=== PATIENT | male | born 1990 | race American Indian/Alaskan Native ===

== ENCOUNTER 2018-05-17 12:03 | Emergency (ER) | payer OTHER ==
--- NOTE | 2018-05-17 12:29 | Emergency Department Report ---
ED Lower Extremity HPI - General Chief Complaint: Extremity Injury, Lower Stated Complaint: FOOT/ANKLE PAIN Time Seen by Provider: 05/17/18 12:13 Source: patient, family Mode of arrival: Ambulatory Limitations: No Limitations - History of Present Illness Initial Comments: Patient she reported that a pallet rolled over his foot while at work last night. He is complaining the left foot and ankle pain. Pain is 9 out of 10 and throbbing in, a kid. Worse with movement and weightbearing better with rest. He said he took ibuprofen prior to coming to the emergency room. Denies any numbness or tingling to extremities. Denies any radiation of pain proximally. Denies any abrasions, laceration or bruising. He reports swelling to his anterior foot below his ankle. MD Complaint: ankle injury, foot injury -: Last night Injury: Ankle: Left (injury with pain and swelling), Foot: Left (injury with pain and swelling) Type of Injury: blunt Place: work Severity: severe Severity scale (0 -10): 9 Improves With: NSAID, rest Worsens With: weight bearing, movement, palpation Context: direct blow Associated Symptoms: swelling, able to partially bear weight. denies: snap/pop sensation, numbness, tingling, unable to bear weight Treatments Prior to Arrival: NSAIDS - Related Data Previous Rx's Medication Instructions Recorded Last Taken Type Ibuprofen [Motrin 800 MG tab] 800 mg PO TID PRN #20 tablet 10/19/13 Unknown Rx Acetaminophen/Codeine [Tylenol 1 tab PO Q6H PRN #14 tab 05/17/18 Unknown Rx /Codeine # 3 tab] Ibuprofen [Motrin] 600 mg PO Q8H PRN #21 tablet 05/17/18 Unknown Rx Allergies Allergy/AdvReac Type Severity Reaction Status Date / Time No Known Allergies Allergy Unverified 10/19/13 09:42 ED Review of Systems ROS: Stated complaint: FOOT/ANKLE PAIN Other details as noted in HPI Constitutional: denies: chills, fever Eyes: denies: eye pain, eye discharge, vision change ENT: denies: ear pain, throat pain Respiratory: denies: cough, shortness of breath, SOB with exertion, SOB at rest , wheezing Cardiovascular: denies: chest pain, palpitations, edema, syncope Gastrointestinal: denies: nausea, vomiting Musculoskeletal: joint swelling, arthralgia. denies: back pain, myalgia Skin: denies: rash, lesions Neurological: abnormal gait. denies: headache, weakness, numbness, paresthesias , confusion, vertigo ED Past Medical Hx - Past Medical History Previous Medical History?: No - Surgical History Past Surgical History?: Yes Additional Surgical History: left wrist surgery - Family History Family history: hypertension - Social History Smoking Status: Never Smoker Substance Use Type: Non Opiate Pain - Medications Home Medications: Home Medications Medication Instructions Recorded Confirmed Last Taken Type Ibuprofen [Motrin 800 MG tab] 800 mg PO TID PRN #20 tablet 10/19/13 Unknown Rx Acetaminophen/Codeine [Tylenol 1 tab PO Q6H PRN #14 tab 05/17/18 Unknown Rx /Codeine # 3 tab] Ibuprofen [Motrin] 600 mg PO Q8H PRN #21 tablet 05/17/18 Unknown Rx ED Physical Exam - General Limitations: No Limitations General appearance: alert, in no apparent distress - Head Head exam: Present: atraumatic, normocephalic, normal inspection - Eye Eye exam: Present: normal appearance, PERRL, EOMI - ENT ENT exam: Present: normal exam, normal orophraynx, mucous membranes moist - Neck Neck exam: Present: normal inspection, full ROM. Absent: tenderness, lymphadenopathy - Respiratory Respiratory exam: Present: normal lung sounds bilaterally. Absent: respiratory distress, chest wall tenderness - Cardiovascular Cardiovascular Exam: Present: regular rate, normal rhythm, normal heart sounds. Absent: systolic murmur, diastolic murmur - Extremities Exam Extremities exam: Present: full ROM, tenderness (left anterior foot proximally and left ankle malleolus), normal capillary refill, joint swelling (after ankle and left proximal foot.), other (no clubbing, cyanosis or edema. +2 pulses all extremities. No neurovascular compromise patient has pain with dorsiflexion to left foot otherwise range of motion is normal. +4/5 strength in the foot otherwise strength to extremities is 5/5.). Absent: normal inspection, pedal edema, calf tenderness - Expanded Lower Extremity Exam Left Hip exam: Present: normal inspection, full ROM, pelvic stability. Absent: tenderness, swelling, abrasion, laceration, ecchymosis, deformity, crepidus, dislocation, erythema, external rotation, internal rotation, shortening Upper Leg exam: Present: normal inspection, full ROM. Absent: tenderness, swelling, abrasion, laceration, ecchymosis, deformity, crepidus, dislocation, erythema Knee exam: Present: normal inspection, full ROM, full knee extension. Absent: tenderness, swelling, abrasion, laceration, ecchymosis, deformity, crepidus, dislocation, erythema, effusion, pain w/ pronation/supination, posterior draw sign, pain/laxity with valgus, pain/laxity with varus Lower Leg exam: Present: normal inspection, full ROM. Absent: tenderness, swelling, abrasion, laceration, ecchymosis, deformity, crepidus, dislocation, erythema, palpable cord, Jada's sign Ankle exam: Present: full ROM (pain with range of motion), tenderness (left malleolus), swelling (left malleolus). Absent: normal inspection, abrasion, laceration, ecchymosis, deformity, crepidus, dislocation, erythema, anterior draw sign Foot/Toe exam: Present: full ROM (pain with dorsiflexion), tenderness (dorsum foot proximally), swelling (dorsum, proximally), subungual hematoma. Absent: normal inspection, abrasion, laceration, ecchymosis, deformity, crepidus, dislocation, erythema, amputation, puncture wound, foreign body, calcaneal tenderness, tenderness at base of 5th metatarsal, nail avulsion Neuro vascular tendon exam: Present: no vascular compromise, significant pain with passive ROM of distal joint. Absent: pulse deficit, abnormal cap refill, motor deficit, sensory deficit, tendon deficit, extremity cold to touch, pallor , abnormal 2-point discrimination, decreased fine/light touch, foot drop, peroneal nerve deficit Gait: Positive: antalgic - Back Exam Back exam: Present: normal inspection, full ROM, other (patient ambulates with limping and reports that he has pain to his left foot walk-in). Absent: tenderness, CVA tenderness (R), CVA tenderness (L), muscle spasm, paraspinal tenderness, vertebral tenderness, rash noted - Neurological Exam Neurological exam: Present: alert, oriented X3, abnormal gait (unsteady gait due to left foot injury and pain), reflexes normal - Psychiatric Psychiatric exam: Present: normal affect, normal mood - Skin Skin exam: Present: warm, dry, intact, normal color. Absent: rash ED Course Vital Signs 05/17/18 05/17/18 05/17/18 12:06 13:04 13:05 Temperature 98.6 F Pulse Rate 76 Respiratory 18 18 18 Rate Blood Pressure 132/60 O2 Sat by Pulse 99 Oximetry - Reevaluation(s) Reevaluation #1: 05/17/18 15:38 She given Dover 5/325 2 tablets by mouth for pain. Pain is been relief. See procedure note for splinting of left foot and ankle - Orthopedic Splinting/Casting Injury #1 Side: left Lower Extremity Injury Location: ankle, foot Lower Extremity Immobilizer: posterior splint Other Orthopedic Equipment: crutches Additional Comments: Patient with good color, sensation, movement and temperature to both feet. +2 pedal pulses ED Lower Extremity MDM - Radiology Data Radiology results: report reviewed X-ray 3 views of ankle and left foot dictated by radiologist and report reviewed by myself. Please see report below. Patient: JAYLIN TIDWELL MR#: [id number] : 1990 Acct:[id number] Age/Sex: 27 / M ADM Date: 05/17/18 Loc: ED Attending Dr: Ordering Physician: MARY ANNE PALACIOS Date of Service: 05/17/18 Procedure(s): XR ankle 3+V LT Accession Number(s): [id number] cc: MARY ANNE PALACIOS Fluoro Time In Minutes: FINAL REPORT EXAM: XR ANKLE 3+V LT HISTORY: blunt trauma with pain left ankle TECHNIQUE: 2 views of the left ankle PRIORS: None. FINDINGS: Lateral view demonstrates a bony fragment of the dorsal aspect of anterior talus which is probably a small fracture fragment. Otherwise the ankle joint appears intact. No additional fracture or dislocations seen. IMPRESSION: Likely a small fracture fragment involving dorsal margin of anterior talus. Transcribed By: [facility] Dictated By: DAMEON WALL MD Electronically Authenticated By: DAMEON WALL MD Signed Date/Time: 05/17/181331 DD/ 31 TD/TT: 05/17/181331 Patient: JAYLIN TIDWELL MR#: [id number] : 1990 Acct:[id number] Age/Sex: 27 / M ADM Date: 05/17/18 Loc: ED Attending Dr: Ordering Physician: MARY ANNE PALACIOS Date of Service: 05/17/18 Procedure(s): XR foot 3+V LT Accession Number(s): [id number] cc: MARY ANNE PALACIOS Fluoro Time In Minutes: FINAL REPORT EXAM: XR FOOT 3+V LT HISTORY: blunt trauma with pain left foot TECHNIQUE: Two views of the left foot PRIORS: None. FINDINGS: Lateral view demonstrates a bony fragment at the dorsal margin of the anterior talus which is probably a fracture fragment. Correlate for focal tenderness. There is no evidence of joint dislocation. IMPRESSION: Lateral view demonstrates bony fragment at dorsal margin of anterior talus which is probably a fracture fragment. Correlate for tenderness. Transcribed By: YOMAIRA Dictated By: DAMEON WALL MD Electronically Authenticated By: DAMEON WALL MD Signed Date/Time: 05/17/181258 DD/ 58 TD/TT: 05/17/181258 - Medical Decision Making This is a 27-year-old male who injured his left foot and ankle last night while at work. He reports that palate rolled over his foot and now he is having pain with swelling to his left foot and ankle. He reports that it is painful to walk on his left foot.. He took Motrin 800 mg prior to coming to the emergency room with very minimal relief of pain. Patient was seen and examined by myself. He has tenderness to left outer ankle and also to left proximal, dorsum of foot. He is observed limping when walk- in. He has full range of motion to all his extremities but he has pain with dorsiflexion of his left foot and with active range of motion to his ankle. Pedal pulses are 2+. Patient had x-rays 3 views of ankle/foot to left lower extremity. Radiology dictated report and was reviewed myself and Lateral view demonstrates bony fragment at dorsal margin of anterior talus which is probably a fracture fragment. Correlate for tenderness. Patient with tenderness to palpate at dorsal margin of anterior talus. He also has swelling at that site. He was given pain medication which relieved his pain and also referred to procedure note for splinting. I discussed x-ray results the patient along with diagnosis and treatment plan and he voiced understanding. Assessment/plan Left foot fracture-exterior ankle splint place along with crutches and patient referred to orthopedic doctor for continuation of care. Teaching given on crutches and splint care. Patient instructed not to weight-bear on left lower extremity doesn't he voiced understanding. Neurovascular checked after splint placement was good and pulses are 2+. Arthralgia left foot and ankle-patient given Dover 5/325 2 tablets by mouth in the emergency room which relieved his pain. He will be discharged home on Tylenol No. 3 and Motrin. Educated on splint, Rice therapy, crutches, medication, diagnosis and need to follow up with orthopedic doctor and he voiced understanding. Patient discharged home in stable condition with prescription for Motrin and Tylenol No. 3. Vital signs are stable he is afebrile. Pain is better after splinting and Dover. I informed him that he needs to follow-up with orthopedic doctor in 2-3 days and he voiced understanding. I Also explained to him that if his condition worsens to return to the emergency room otherwise follow-up with orthopedic doctor. - Differential Diagnosis fracture, contusion, strain, musculoskeletal pain Critical care attestation.: If time is entered above; I have spent that time in minutes in the direct care of this critically ill patient, excluding procedure time. ED Disposition Clinical Impression: Arthralgia of multiple sites Fracture, talus closed Qualifiers: Encounter type: initial encounter Talus location: dome of talus Fracture alignment: displaced Laterality: left Qualified Code(s): S92.142A - Displaced dome fracture of left talus, initial encounter for closed fracture Disposition: DC-01 TO HOME OR SELFCARE Is pt being admited?: No Does the pt Need Aspirin: No Condition: Stable Instructions: Arthralgia (ED), Foot Fracture in Adults (ED), Talar Fracture in Adults (ED), Splint Care (ED), RICE Therapy (ED) Additional Instructions: Please follow up with a primary care doctor and also orthopedic doctor in 2-3 days See Discharge instruction in Rice therapy Discharge instructions splint care Take Motrin mild to moderate pain as prescribed but make sure he taken with food . Take Tylenol 3 for severe pain but please do not operate heavy machinery or drive while taking this medication as it causes drowsiness If you condition worsens, return to the emergency room. Referrals: PRIMARY CARE, [Primary Care Provider] - 2-3 Days [facility] [Outside] - 2-3 Days CARL MENDENHALL MD [Staff Physician] - 05/20/18 Forms: Work/School Release Form(ED)
[2018-05-17] MEDS ORDERED: NORCO 5/325 PO ONE (12:30)
[2018-05-17] MEDS ORDERED: MOTRIN PO ONE (12:30)
--- NOTE | 2018-05-17 13:04 | XRay Report ---
FINAL REPORT EXAM: XR FOOT 3+V LT HISTORY: blunt trauma with pain left foot TECHNIQUE: Two views of the left foot PRIORS: None. FINDINGS: Lateral view demonstrates a bony fragment at the dorsal margin of the anterior talus which is probably a fracture fragment. Correlate for focal tenderness. There is no evidence of joint dislocation. IMPRESSION: Lateral view demonstrates bony fragment at dorsal margin of anterior talus which is probably a fracture fragment. Correlate for tenderness.
--- NOTE | 2018-05-17 13:37 | XRay Report ---
FINAL REPORT EXAM: XR ANKLE 3+V LT HISTORY: blunt trauma with pain left ankle TECHNIQUE: 2 views of the left ankle PRIORS: None. FINDINGS: Lateral view demonstrates a bony fragment of the dorsal aspect of anterior talus which is probably a small fracture fragment. Otherwise the ankle joint appears intact. No additional fracture or dislocations seen. IMPRESSION: Likely a small fracture fragment involving dorsal margin of anterior talus.
[2018-05-17 16:48] VITALS: BP 125/70
== END 2018-05-17 16:48 | disposition home or self-care (01) ==
LOC: ED 12:03
DX: S92.142A Displaced dome fracture of left talus, initial encounter for closed fracture (principal); W22.8XXA Striking against or struck by other objects, initial encounter; Y93.89 Activity, other specified; Y92.009 Unspecified place in unspecified non-institutional (private) residence as the place of occurrence of the external cause; Y99.8 Other external cause status
CPT/HCPCS: 99283